=== PATIENT | male | born 1955 | race Caucasian/White ===

== ENCOUNTER 2024-05-03 18:34 | Emergency (ER) | payer MEDICARE ==
[~2024-05-03] VITALS: Ht 180.3 cm; Wt 70.3 kg
[2024-05-03 18:38] VITALS: PULSE 104; RESP 18; TEMP 98.7
[2024-05-03] MEDS: ONDANSETRON HCL 4 MG ORAL DISINTEGRATING TAB PO ONE (19:17)
[2024-05-03] MEDS ORDERED: ONDANSETRON ODT4 MG PO (19:23)
[2024-05-03 19:45] VITALS: BP 99/67; PULSE 104; RESP 18; TEMP 98.7; O2SAT 97
== END 2024-05-03 19:45 | disposition home or self-care (01) ==
LOC: FSED 18:38
DX: R50.9 Fever, unspecified (principal); R11.2 Nausea with vomiting, unspecified; E86.0 Dehydration; E86.1 Hypovolemia; Z11.52 Encounter for screening for COVID-19
CPT/HCPCS: 0223U; 87400; 99283; Q0162